=== PATIENT | male | born 1955 | race Caucasian/White ===

== ENCOUNTER 2022-03-12 00:51 | Day surgery (SDC) | payer OTHER, SELFPAY ==
[2021-12-29 12:50] VITALS: BMI 29.0
--- NOTE | 2022-01-14 09:39 | PC.NURSE ---
Samir with patient, new date and time confirmed, as well as covid test in [place] 01/26/22. No changes in medications or health condition.
[2022-02-25 10:52] VITALS: BMI 29.0
[2022-03-12 07:02] VITALS: BP 119/88; PULSE 68; RESP 17; TEMP 36.5; O2SAT 100; BMI 27.1
[2022-03-12] MEDS: LACTATED RINGERS 1,000 ML 150 ML IV CONT (07:11)
--- NOTE | 2022-03-12 07:31 | P.PNAN_ITS ---
Anes - Initial Pre Proc Eval Procedure: Operation Date: 03/12/22 08:00 Proposed Procedures p Screening Colonoscopy - James Linda DO Date/Time: 03/12/22 07:31 Surgeon: James Linda DO Pre Op Diagnosis: hx of colon polyps Patient Data Age: 66 Gender: M Height: 1.8 m Weight: 88.1 kg Last Vital Signs Temp 36.5 C 03/12/22 07:02 Pulse 68 03/12/22 07:02 Resp 17 03/12/22 07:02 BP 119/88 03/12/22 07:02 Pulse Ox 100 03/12/22 07:02 O2 Del Method Room Air 03/12/22 07:02 Allergies Allergy/AdvReac Type Severity Reaction Status Date / Time No Known Allergies Allergy Verified 03/12/22 07:00 Home Medications Medication Instructions Recorded Confirmed Type amlodipine 5 mg tablet 5 mg PO DAILY 12/29/21 02/25/22 History aspirin 81 mg tablet 81 mg PO DAILY 12/29/21 02/25/22 History atorvastatin 40 mg tablet 40 mg PO DAILY 12/29/21 02/25/22 History magnesium oxide 400 mg PO DAILY 12/29/21 02/25/22 History metoprolol succinate 25 mg 25 mg PO DAILY 12/29/21 02/25/22 History tablet,extended release 24 hr multivitamin 1 tablet PO DAILY 12/29/21 02/25/22 History Patient hx anesthesia problems: none Family hx anesthesia problems: none Results Review: All pre-operative results and documents have been reviewed as part of the pre- operative evaluation. [facility] Past Medical History Medical History (Updated 03/12/22 @ 07:32 by Niko Marquez MD) HTN (hypertension) Hyperlipidemia Overweight Surgical History Surgical History (Updated 03/12/22 @ 07:32 by Niko Marquez MD) H/O colonoscopy History of coronary artery stent placement Social History Social History Smoking status: Never smoker Alcohol intake: current Drinks per week: 10 Alcohol use details: BEER Substance use: never Substance use type: does not use Living arrangements: with family Spiritual care concerns: No Anes - Eval Final PreProcedure Day of Procedure 03/12/22 07:31 Patient weight: overweight Heart: regular rate and rhythm Lungs: clear to auscultation Airway: Mallampati scale class II Neurological: alert and oriented Last oral intake: >/= 8 hours ASA classification: III Emergent: no Anesthetic plan: proceed Anesthesia type and monitoring: general GIVS and standard monitoring Results Review: All pre-operative results and documents have been reviewed as part of the pre- operative evaluation. Informed Consent: The patient's anesthetic plan and its attendant risks and benefits were discussed with the patient/family/POA. Questions were solicited and answers provided to the satisfaction of the patient/family/POA.
--- NOTE | 2022-03-12 07:58 | PM.IMHP ---
H&P: HPI History of Present Illness Date/Time: 03/12/22 07:58 Chief Complaint: history of colon polyps, family history of colon cancer Narrative: this is a 66-year-old man presents for colonoscopy. His last colonoscopy was 5 years ago and polyps were removed. He also has a family history of colon cancer in his mother. He denies any hematochezia or melena. He denies any change in bowel habits. Review of Systems Review of Systems: All systems reviewed & are unremarkable except as noted in HPI and below Constitutional: Constitutional: Denies chills, Denies fever(s), Denies headache(s) and Denies weight loss Eyes: Eyes: Denies change in vision ENT: Denies dizziness, Denies headache(s), Denies neck mass and Denies throat swelling Cardiovascular: Cardiovascular: Denies chest pain, Denies lightheadedness and Denies dyspnea Respiratory: Respiratory: Denies cough, Denies dyspnea and Denies wheezing Gastrointestinal: Gastrointestinal: Denies abdominal pain, Denies change in bowel habits, Denies nausea and Denies vomiting Genitourinary: Genitourinary: Denies hematuria and Denies dysuria Musculoskeletal: Musculoskeletal: Reports as per HPI Integumentary/Breasts: Skin/Breast: Reports as per HPI Neurologic: Denies dizziness and Denies headache(s) Allergic/Immunologic: Allergic/Immunologic: Denies throat swelling and Denies wheezing REPLACED BY [facility] Past Medical History Medical History (Updated 03/12/22 @ 07:59 by James Linda DO) HTN (hypertension) Hyperlipidemia Overweight Surgical History Surgical History (Updated 03/12/22 @ 07:32 by Niko Marquez MD) H/O colonoscopy History of coronary artery stent placement Social History Social History Smoking status: Never smoker Alcohol intake: current Drinks per week: 10 Alcohol use details: BEER Substance use: never Substance use type: does not use Living arrangements: with family Spiritual care concerns: No Meds Home Medications and Allergies Home Medications Medication Instructions Recorded Confirmed Type amlodipine 5 mg tablet 5 mg PO DAILY 12/29/21 02/25/22 History aspirin 81 mg tablet 81 mg PO DAILY 12/29/21 02/25/22 History atorvastatin 40 mg tablet 40 mg PO DAILY 12/29/21 02/25/22 History magnesium oxide 400 mg PO DAILY 12/29/21 02/25/22 History metoprolol succinate 25 mg 25 mg PO DAILY 12/29/21 02/25/22 History tablet,extended release 24 hr multivitamin 1 tablet PO DAILY 12/29/21 02/25/22 History Allergies Allergy/AdvReac Type Severity Reaction Status Date / Time No Known Allergies Allergy Verified 03/12/22 07:00 Vital Signs Vital Signs - 24 hr 03/12/22 07:02 Temperature 36.5 C Pulse Rate 68 Respiratory Rate 17 Blood Pressure 119/88 Pulse Oximetry 100 Oxygen Delivery Room Air Exam Const: General: no acute distress and alert Orientation/consciousness: patient oriented x3 HENMT: Head: normocephalic and atraumatic Ears: hearing grossly normal bilaterally General nose exam: Normal nares present Mouth: Yes Normal oral and palatal mucosa present Eyes: Periorbital: periorbital findings normal Sclera: sclerae normal EOM: EOMs intact bilaterally Neck: Neck: normal visual inspection, no lymphadenopathy and trachea midline Chest: Chest palpation & inspection: normal inspection of the chest Resp: Effort & Inspection: normal respiratory effort Auscultation: clear to auscultation bilaterally Cardio: Jugular venous distension: no JVD Rate: regular rate Rhythm: regular rhythm Heart sounds: S1 normal heart sound present and S2 normal heart sound present Peripheral pulses: Peripheral pulses 2+ throughout GI: Inspection: normal to inspection GI Palp: Yes Soft to palpation, No Tenderness to palpation present (GI), No Guarding due to palpation present (GI) and No Rebound tenderness present Percussion: Yes normal to percussion Auscultation: normal bowel
[2022-03-12 08:40] VITALS: BP 89/58; PULSE 78; RESP 17; O2SAT 97
[2022-03-12 08:50] VITALS: BP 99/65; PULSE 60; RESP 16; O2SAT 100
[2022-03-12 09:00] VITALS: BP 105/68; PULSE 63; RESP 17; O2SAT 100
== END 2022-03-12 09:14 | disposition home or self-care (01) ==
PROVIDERS: PCP Internal Medicine; Visit Provider Surgery
PROC: 0DJD8ZZ Inspection of Lower Intestinal Tract, Via Natural or Artificial Opening Endoscopic (ICD-10-PCS; CPT 45378; principal; 2022-03-12 08:00)
DX: Z12.11 Encounter for screening for malignant neoplasm of colon (principal); D12.2 Benign neoplasm of ascending colon; D12.3 Benign neoplasm of transverse colon; K57.30 Diverticulosis of large intestine without perforation or abscess without bleeding; Z80.0 Family history of malignant neoplasm of digestive organs; I10 Essential (primary) hypertension; E78.5 Hyperlipidemia, unspecified; Z79.82 Long term (current) use of aspirin; Z95.5 Presence of coronary angioplasty implant and graft
CPT/HCPCS: 45385; 88305; J2704; J7120

== ENCOUNTER → 2022-04-06 11:24 | Outpatient (CLI) | payer OTHER, SELFPAY ==
--- NOTE | ~2022-04-06 | US_ITS ---
EXAMINATION: US carotid duplex BI DATE: 04/06/2022 11:51 INDICATION: Bilateral carotid stenosis. TECHNIQUE: Grayscale, color Doppler, and pulsed Doppler images of the cervical carotid arteries were obtained. The degree of vessel stenosis is placed in one of the following categories: normal, <50%, 5 0-69%, >=70% but less than near-occlusion, near-occlusion, or total occlusion. Note that percent sten osis relative to normal distal artery lumen diameter is indirectly measured from velocity measurement s as described by Donte, et al. Radiology 2003; [id number]. COMPARISON: Ultrasound 07/28/2019 FINDINGS: RIGHT: The right common carotid artery (CCA) peak systolic velocity (PSV) is 79 cm/s. The right internal car otid artery (ICA) PSV is 56 cm/s. The right ICA end-diastolic velocity (EDV) is 19 cm/s. The right IC A/CCA PSV ratio is 0.7. Grayscale and color Doppler images yield an estimate of <50% diameter reducti on from plaque in the ICA. There is antegrade flow in the right vertebral artery. LEFT: The left CCA PSV is 72 cm/s. The left ICA PSV is 61 cm/s. The left ICA EDV is 22 cm/s. The left ICA/C CA PSV ratio is 0.9. Grayscale and color Doppler images yield an estimate of <50% diameter reduction from plaque in the ICA. There is antegrade flow in the left vertebral artery. IMPRESSION: 1. <50% stenosis in the right internal carotid artery. 2. <50% stenosis in the left internal carotid artery. Reviewed, dictated and finalized at location A.
== END ==
PROVIDERS: PCP Internal Medicine; Visit Provider Internal Medicine
DX: I65.23 Occlusion and stenosis of bilateral carotid arteries (principal)
CPT/HCPCS: 93880

== ENCOUNTER 2024-07-21 16:42 | Outpatient (CLI) | payer MEDICARE, SELFPAY ==
--- NOTE | ~2024-07-21 | US_ITS ---
EXAMINATION: US carotid duplex BI DATE: 07/21/2024 17:25 INDICATION: Bilateral carotid stenosis. TECHNIQUE: Grayscale, color Doppler, and pulsed Doppler images of the cervical carotid arteries were obtained. The degree of vessel stenosis is placed in one of the following categories: normal, <50%, 5 0-69%, >=70% but less than near-occlusion, near-occlusion, or total occlusion. Note that percent sten osis relative to normal distal artery lumen diameter is indirectly measured from velocity measurement s as described by Donte, et al. Radiology 2003; [id number]. COMPARISON: Ultrasound 04/06/2022 FINDINGS: RIGHT: The right common carotid artery (CCA) peak systolic velocity (PSV) is 86 cm/s. The right internal car otid artery (ICA) PSV is 75 cm/s. The right ICA end-diastolic velocity (EDV) is 34 cm/s. The right IC A/CCA PSV ratio is 0.9. Grayscale and color Doppler images yield an estimate of <50% diameter reducti on from plaque in the ICA. There is antegrade flow in the right vertebral artery. LEFT: The left CCA PSV is 71 cm/s. The left ICA PSV is 74 cm/s. The left ICA EDV is 35 cm/s. The left ICA/C CA PSV ratio is 1.0. Grayscale and color Doppler images yield an estimate of <50% diameter reduction from plaque in the ICA. There is antegrade flow in the left vertebral artery. IMPRESSION: 1. <50% stenosis in the right internal carotid artery. 2. <50% stenosis in the left internal carotid artery. Reviewed, dictated and finalized at location A. [employer]
== END 2024-07-21 16:43 | disposition home or self-care (01) ==
LOC: ANHIMG 16:43
PROVIDERS: PCP Internal Medicine; Visit Provider Internal Medicine
DX: I65.23 Occlusion and stenosis of bilateral carotid arteries (principal)
CPT/HCPCS: 93880